=== PATIENT | male | born 1960 | race Caucasian/White ===

== ENCOUNTER 2016-08-06 14:55 | Emergency (ER) | payer OTHER | END 2016-08-06 16:21 | disposition other institution (70) | LOC: ED 14:55 | DX: Z02.89 Encounter for other administrative examinations (principal) ==

== ENCOUNTER 2016-08-06 14:55 | Emergency (ER) | payer OTHER ==
[~2016-08-06] VITALS: Ht 177.8 cm; Wt 97.1 kg
[2016-08-06 15:05] VITALS: BP 126/72
== END 2016-08-06 16:21 | disposition other institution (70) ==
LOC: ED 14:55
DX: Z02.89 Encounter for other administrative examinations (principal); F10.129 Alcohol abuse with intoxication, unspecified; I10 Essential (primary) hypertension; I48.91 Unspecified atrial fibrillation; I42.9 Cardiomyopathy, unspecified; S51.811D Laceration without foreign body of right forearm, subsequent encounter; X58.XXXD Exposure to other specified factors, subsequent encounter; Y99.8 Other external cause status; Y92.89 Other specified places as the place of occurrence of the external cause

== ENCOUNTER 2017-11-09 17:41 | Emergency (ER) | payer OTHER ==
[~2017-11-09] VITALS: Ht 175.3 cm; Wt 109.3 kg
[2017-11-09 17:57] VITALS: Ht 175.3 cm; Wt 109.3 kg
[2017-11-09 18:47] LABS: BASOPHIL % 1.3 % (0-2); PLATELET COUNT 145 x10^3mcL (130-400)
[2017-11-09 19:05] LABS: CALCIUM 7.9 mg/dL (8.5-10.1); CREATININE SERUM 1.2 mg/dL (0.7-1.3); GFR1 > 60 mL/min; POTASSIUM SERUM 4.9 mmol/L (3.5-5.1); SODIUM SERUM 127 mmol/L (136-145)
[2017-11-09 19:08] LABS: CARBON DIOXIDE 22.6 mmol/L (21-32); CHLORIDE SERUM 97 mmol/L (98-107); FREE T4 1.55 ng/dL (0.76-1.46); FREE THYROXINE INDEX 2.8 ug/dL (1.4-4.5); GLUCOSE SERUM 125 mg/dL (74-106)
[2017-11-09 19:12] LABS: ALKALINE PHOSPHATASE 192 U/L (46-116); ALT/SGPT 114 U/L (16-63); AST/SGOT 123 U/L (15-37); BILIRUBIN TOTAL 1.8 mg/dL (0.20-1.00); LIPASE 98 IU/L (73-393); TOTAL PROTEIN, SERUM 6.9 g/dL (6.4-8.2)
[2017-11-09 19:13] LABS: ALBUMIN 2.8 g/dL (3.4-5.0); HDL CHOLESTEROL 23 mg/dL (40-60)
[2017-11-09 19:34] LABS: CHOLESTEROL 68 mg/dL (<200); TRIGLYCERIDES 35 mg/dL (<150)
[2017-11-09 19:39] LABS: RED CELL DISTRIBUTION WIDTH 18.3 % (11.5-14.5)
[2017-11-09 20:16] VITALS: BP 100/51
== END 2017-11-09 20:16 | disposition home or self-care (01) ==
LOC: ED 17:41
PROVIDERS: Specialist
DX: J98.01 Acute bronchospasm (principal); E87.1 Hypo-osmolality and hyponatremia; I48.2 Chronic atrial fibrillation; I10 Essential (primary) hypertension
CPT/HCPCS: 36415; 83880; 84439; J7620

== ENCOUNTER 2018-01-13 14:59 | Inpatient (IN) | payer OTHER ==
[~2018-01-13] VITALS: Ht 175.3 cm; Wt 109.3 kg
[2018-01-13 15:01] VITALS: Ht 175.3 cm; Wt 109.3 kg
[2018-01-13 15:37] VITALS: BP 88/42
[2018-01-13 15:52] LABS: PLATELET COUNT 128 x10^3mcL (130-400); RED CELL DISTRIBUTION WIDTH 21.8 % (11.5-14.5)
[2018-01-13 16:08] LABS: UA SPECIFIC GRAVITY >=1.030 (1.005-1.035); microscopic required? YES; urine erythrocyte 2+ (NEGATIVE)
[2018-01-13 16:11] LABS: BILIRUBIN TOTAL 3.91 mg/dL (0.20-1.00); CALCIUM 8.4 mg/dL (8.5-10.1); CARBON DIOXIDE 16.8 mmol/L (21-32); CREATININE SERUM 2.1 mg/dL (0.7-1.3); POTASSIUM SERUM 3.9 mmol/L (3.5-5.1)
[2018-01-13 16:14] LABS: ALBUMIN 2.6 g/dL (3.4-5.0); TOTAL PROTEIN, SERUM 5.8 g/dL (6.4-8.2)
[2018-01-13 16:15] LABS: BAND NEUTROPHIL 22 % (0-10); BASOPHIL 0 % (0-2); METAMYELOCTE 3 % (0-2); MONOCYTE 2 % (0-7); MYELOCYTE 3 % (0-2); SEGMENTED NEUTROPHILS 65 % (37-75); rbc morphology (normal/abnorm) ABNORMAL (NORMAL)
[2018-01-13 16:16] LABS: tear drop cell (dacryocyte) 1+
[2018-01-13 16:17] LABS: ovalocyte/elliptocyte 1+
[2018-01-13 17:06] VITALS: BP 88/42
[2018-01-13 17:31] LABS: MAGNESIUM 1.6 mg/dL (1.8-2.4); PHOSPHOROUS 8.4 mg/dL (2.5-4.9)
[2018-01-13 17:35] LABS: T3 TOTAL 0.57 ng/mL
[2018-01-13 17:38] LABS: FREE T4 1.53 ng/dL (0.76-1.46); FREE THYROXINE INDEX 1.9 ug/dL (1.4-4.5); T4(THYROXINE) 5.4 ug/dL (4.7-13.3)
[2018-01-13 17:56] LABS: CHOLESTEROL/HDL RATIO 2.4
[2018-01-13 18:29] VITALS: BP 163/65
[2018-01-13 19:30] VITALS: BP 47/31
[2018-01-13 20:28] VITALS: BP 163/65
== END 2018-01-14 02:23 | disposition expired | DRG 720 ==
LOC: ED 14:59 → IC 15:56
PROVIDERS: Emergency Medicine; Internal Medicine
PROC: 5A1935Z Respiratory Ventilation, Less than 24 Consecutive Hours (ICD-10-PCS; principal; 2018-01-13)
PROC: 0BH17EZ Insertion of Endotracheal Airway into Trachea, Via Natural or Artificial Opening (ICD-10-PCS; 2018-01-13)
PROC: 06HM33Z Insertion of Infusion Device into Right Femoral Vein, Percutaneous Approach (ICD-10-PCS; 2018-01-13)
DX: A41.9 Sepsis, unspecified organism (principal); J96.00 Acute respiratory failure, unspecified whether with hypoxia or hypercapnia; N17.0 Acute kidney failure with tubular necrosis; E43 Unspecified severe protein-calorie malnutrition; G93.1 Anoxic brain damage, not elsewhere classified; R57.0 Cardiogenic shock; R65.21 Severe sepsis with septic shock; K81.0 Acute cholecystitis; I48.91 Unspecified atrial fibrillation; E16.2 Hypoglycemia, unspecified; I50.9 Heart failure, unspecified; F11.288 Opioid dependence with other opioid-induced disorder; I42.9 Cardiomyopathy, unspecified; E80.6 Other disorders of bilirubin metabolism; R74.0 Nonspecific elevation of levels of transaminase and lactic acid dehydrogenase [LDH]; G93.41 Metabolic encephalopathy; Z86.711 Personal history of pulmonary embolism; Z86.718 Personal history of other venous thrombosis and embolism; Z68.34 Body mass index [BMI] 34.0-34.9, adult; Z66 Do not resuscitate
CPT/HCPCS: 36600; 83880; 84439; J1265; J1644; J1650; J2543; J3370; J3490; J7030; J7050; Q0092; Q9967